=== PATIENT | male | born 1990 | race Hispanic/Latino ===

== ENCOUNTER 2016-05-17 08:41 | Emergency (ER) | payer MEDICAID, OTHER ==
[2016-05-17 08:50] VITALS: BMI 23.0
[2016-05-17 08:51] VITALS: RESP 18; TEMP 98.2
[2016-05-17] MEDS ORDERED: Oxycodone/Acetaminophen 5/325 mg Tab PO STA (09:31)
--- NOTE | 2016-05-17 09:33 | C.PDOC ---
History Of Present Illness 26 yr old male presents to the ER with complaints of low back pain for the past 2 days. Patient states the pain radiated upwards just below the shoulders. 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 Patient describes the pain and sharp and throbbing. Patient denies direct trauma or injury, chest pain, SOB, nausea, vomiting, abdominal pain, diarrhea, dysuria, incontinence, hematuria, weakness or numbness. Time Seen by Provider: 05/17/16 09:04 Chief Complaint (Nursing): Back Pain History Per: Patient History/Exam Limitations: no limitations Onset/Duration Of Symptoms: Days (2) Current Symptoms Are (Timing): Still Present Quality Of Discomfort: Sharp Associated Symptoms: None Recent travel outside of the [place]: No Past Medical History Reviewed: Historical Data, Nursing Documentation, Vital Signs Vital Signs: Last Vital Signs Temp 98.2 F 05/17/16 10:38 Pulse 75 05/17/16 10:38 Resp 18 05/17/16 10:38 BP 128/75 05/17/16 10:38 Pulse Ox 98 05/17/16 10:38 Family History: States: No Known Family Hx - Social History Hx Tobacco Use: No Hx Alcohol Use: Yes (soc) Hx Substance Use: No Review Of Systems Except As Marked, All Systems Reviewed And Found Negative. Cardiovascular: Negative for: Chest Pain Respiratory: Negative for: Shortness of Breath Gastrointestinal: Negative for: Nausea, Vomiting, Abdominal Pain, Diarrhea Genitourinary: Negative for: Dysuria, Incontinence, Hematuria Musculoskeletal: Positive for: Back Pain (Low back pain, more on the left ) Neurological: Negative for: Weakness, Numbness Physical Exam - Physical Exam Appears: Non-toxic, No Acute Distress Skin: Warm, Dry, No Rash Head: No Atraumatic, No Normacephalic Oral Mucosa: Moist Neck: Normal, Normal ROM, Supple Chest: Symmetrical, No Tenderness Cardiovascular: Rhythm Regular, Other (tachy) Respiratory: Normal Breath Sounds, No Rales, No Rhonchi, No Stridor, No Wheezing Gastrointestinal/Abdominal: Normal Exam, Soft, No Tenderness, No Guarding, No Rebound Back: Other ((+) Tender to palpation on the left side.) Extremity: Normal ROM, No Deformity, No Swelling Neurological/Psych: Oriented x3, Normal Speech, Normal Motor ED Course And Treatment O2 Sat by Pulse Oximetry: 100 Medical Decision Making Medical Decision Making: PLAN: * Flexeril PO * Percocet PO [place] rx check no rx since mid last year Plan dc home with meds Disposition - Disposition Referrals: Hakan Villar MD [Staff Provider] - Disposition: HOME/ ROUTINE Disposition Time: 10:00 Condition: FAIR Prescriptions: Cyclobenzaprine [Cyclobenzaprine HCl] 1 tab PO Q8H PRN #25 tab PRN Reason: Muscle Spasm Naproxen [Naprosyn] 1 tab PO BID PRN #25 tab PRN Reason: Pain oxyCODONE/Acetaminophen [Percocet 5/325 mg Tab] 1 tab PO Q4H PRN #10 tab PRN Reason: .severe pain Instructions: Back Pain (ED) Forms: Work Excuse - Clinical Impression Clinical Impression: Back pain - Scribe Statement The provider has reviewed the documentation as recorded by the Bernadetteibe Elisabet Guerrero Provider Attestation: All medical record entries made by the Bernadetteibe were at my direction and personally dictated by me. I have reviewed the chart and agree that the record accurately reflects my personal performance of the history, physical exam, medical decision making, and the department course for this patient. I have also personally directed, reviewed, and agree with the discharge instructions and disposition.
[2016-05-17] MEDS ORDERED: Oxycodone/Acetaminophen 5/325 mg Tab ONE ×2 (09:40→09:59)
[2016-05-17 10:40] VITALS: BP 128/75; PULSE 75
[2016-05-17 13:52] VITALS: O2SAT 100
== END 2016-05-17 10:40 | disposition home or self-care (01) ==
LOC: C.ER 08:41
DX: M54.5 Low back pain (principal)